=== PATIENT | male | born 1950 | race Caucasian/White ===

== ENCOUNTER 2017-01-31 06:47 | Inpatient (IN) | payer MEDICARE, MEDICAID ==
[~2017-01-31] VITALS: Ht 175.3 cm; Wt 73.9 kg
[2017-01-31] MEDS ORDERED: FAMOTIDINE 20 MG/2 ML IVP ONE (07:30)
[2017-01-31] MEDS ORDERED: ONDANSETRON 2MG/ML, 2ML IVPush ONE (07:30)
[2017-01-31] MEDS ORDERED: MORPHINE SULFATE 4 MG/ML, 1ML IVPush PRN (07:30)
[2017-01-31] MEDS ORDERED: SODIUM CHLORIDE 0.9% 1,000ML IVBOLUS ONE ×2 (07:30→08:00)
[2017-01-31] MEDS ORDERED: CEFTRIAXONE 1,000 MG in SODIUM CHLORIDE 0.9% 50 ML IVPB ONE (08:00)
[2017-01-31 08:04] LABS: BLOOD UREA NITROGEN 29 mg/dL (7-18)
[2017-01-31] MEDS ORDERED: FAMOTIDINE 20 MG/2 ML ONE (08:05)
[2017-01-31] MEDS ORDERED: ONDANSETRON 2MG/ML, 2ML ONE (08:05)
[2017-01-31 08:07] LABS: ASPARTATE AMINO TRANSFERASE 7 U/L (15-37)
[2017-01-31] MEDS ORDERED: MORPHINE SULFATE 4 MG/ML, 1ML ONE (08:11)
[2017-01-31] MEDS ORDERED: CEFTRIAXONE PMX 1GM/50ML 50 ML ONE (08:13)
[2017-01-31] MEDS ORDERED: CEFTRIAXONE PMX 1GM/50ML 50 ML IV SCH (08:14)
[2017-01-31 08:22] LABS: DIFF TOTAL CELLS COUNTED 100 CELL DIFF
[2017-01-31 08:23] LABS: VERIFY COUNTS? YES
[2017-01-31] MEDS ORDERED: NS + 40MEQ KCL 1,000 ML IV SCH (08:37)
[2017-01-31] MEDS ORDERED: OMNIPAQUE 350 MG/ML, 100ML BOTTLE ONE (08:41)
[2017-01-31] MEDS ORDERED: SODIUM CHLORIDE 0.9%, 500ML IVBOLUS ONE (09:30)
[2017-01-31] MEDS ORDERED: NS + 40MEQ KCL 1,000 ML IV ONE (09:56)
[2017-01-31] MEDS ORDERED: AZITHROMYCIN 500 MG in SODIUM CHLORIDE 0.9% 250 ML IV ONE (10:00)
[2017-01-31] MEDS: SODIUM CHLORIDE 0.9% 1,000 ML IV SCH ×3 (10:13→21:31)
[2017-01-31] MEDS ORDERED: ACETAMINOPHEN 325 MG TABLET PO PRN (10:30)
[2017-01-31] MEDS ORDERED: POLYETHYLENE GLYCOL 17 GM PACKET PO PRN (10:30)
[2017-01-31] MEDS ORDERED: DOCUSATE 100 MG CAPSULE PO PRN (10:30)
[2017-01-31] MEDS ORDERED: ONDANSETRON 2MG/ML, 2ML IVPush PRN (10:30)
[2017-01-31] MEDS ORDERED: BISACODYL 10 MG SUPP PR PRN (10:30)
[2017-01-31] MEDS ORDERED: THIAMINE 100MG TABLET ONE (11:08)
[2017-01-31] MEDS ORDERED: HEPARIN 5,000 UNITS/ML, 1ML ONE (11:08)
[2017-01-31] MEDS: THIAMINE 100MG TABLET PO SCH (11:09)
[2017-01-31] MEDS: HEPARIN 5,000 UNITS/ML, 1ML SQ SCH ×2 (11:10→18:11)
[2017-01-31] MEDS: FOLIC ACID 1 MG TABLET PO SCH (12:26)
[2017-01-31] MEDS ORDERED: NOREPINEPHRINE 4 MG in SODIUM CHLORIDE 0.9% 246 ML IV PRN (14:00)
[2017-01-31 14:40] VITALS: BP 85/56
[2017-01-31] MEDS ORDERED: INSULIN ASPART 100 UNITS/ML, PEN ONE (18:35)
[2017-01-31] MEDS: INSULIN ASPART 100 UNITS/ML, PEN SQ-INSULIN SCH (18:39)
[2017-01-31] MEDS ORDERED: FAMOTIDINE 20 MG/2 ML IVPush SCH (21:00)
[2017-02-01] MEDS: HEPARIN 5,000 UNITS/ML, 1ML SQ SCH ×3 (02:40→19:48)
[2017-02-01] MEDS: CEFTRIAXONE PMX 1GM/50ML 50 ML IV SCH (06:37)
[2017-02-01] MEDS: INSULIN ASPART 100 UNITS/ML, PEN SQ-INSULIN SCH ×4 (07:00→19:53)
[2017-02-01] MEDS ORDERED: CEFTRIAXONE 1,000 MG in SODIUM CHLORIDE 0.9% 50 ML IV SCH (07:00)
[2017-02-01 07:07] LABS: ASPARTATE AMINO TRANSFERASE 14 U/L (15-37); BLOOD UREA NITROGEN 20 mg/dL (7-18)
[2017-02-01] MEDS: AZITHROMYCIN 500 MG in SODIUM CHLORIDE 0.9% 250 ML IV SCH (07:22)
[2017-02-01] MEDS ORDERED: POTASSIUM CHLORIDE 20 MEQ TAB.ER.PRT PO ONE (07:30)
[2017-02-01] MEDS ORDERED: MAGNESIUM SULFATE PMX 2GM/50ML 50 ML IV ONE (07:30)
[2017-02-01 08:25] LABS: DIFF TOTAL CELLS COUNTED 100 CELL DIFF
[2017-02-01 08:28] LABS: VERIFY COUNTS? YES
[2017-02-01] MEDS: THIAMINE 100MG TABLET PO SCH (08:38)
[2017-02-01] MEDS: FOLIC ACID 1 MG TABLET PO SCH (08:39)
[2017-02-01] MEDS: INSULIN DETEMIR 100 UNITS/ML, PEN SQ-INSULIN SCH (12:26)
[2017-02-01 19:06] VITALS: BP 107/71
[2017-02-01] MEDS ORDERED: PNEUMOCOCCAL 23 VACCINE IM-VACC ONE (23:30)
[2017-02-02 03:43] VITALS: BP 117/79
[2017-02-02] MEDS: CEFTRIAXONE PMX 1GM/50ML 50 ML IV SCH (06:31)
[2017-02-02] MEDS: HEPARIN 5,000 UNITS/ML, 1ML SQ SCH ×3 (06:31→21:37)
[2017-02-02] MEDS: INSULIN ASPART 100 UNITS/ML, PEN SQ-INSULIN SCH ×4 (07:00→21:00)
[2017-02-02 07:26] VITALS: BP 125/78
[2017-02-02] MEDS: FOLIC ACID 1 MG TABLET PO SCH (08:21)
[2017-02-02] MEDS: THIAMINE 100MG TABLET PO SCH (08:21)
[2017-02-02] MEDS: AZITHROMYCIN 500 MG in SODIUM CHLORIDE 0.9% 250 ML IV SCH (08:21)
[2017-02-02] MEDS: INSULIN DETEMIR 100 UNITS/ML, PEN SQ-INSULIN SCH (08:23)
[2017-02-02 09:16] LABS: BLOOD UREA NITROGEN 15 mg/dL (7-18)
[2017-02-02 09:50] LABS: DIFF TOTAL CELLS COUNTED 100 CELL DIFF
[2017-02-02 09:52] LABS: VERIFY COUNTS? YES
[2017-02-02] MEDS ORDERED: OMEP-110 PO (11:26)
[2017-02-02] MEDS ORDERED: HYDR25TA6 PO (11:26)
[2017-02-02] MEDS ORDERED: POTA15TA9 PO (11:39)
[2017-02-02] MEDS ORDERED: ATOR80TA75 PO (11:39)
[2017-02-02] MEDS ORDERED: CARV12.52 PO (11:39)
[2017-02-02] MEDS ORDERED: ENAL20TA PO (11:39)
[2017-02-02] MEDS ORDERED: DOXA8TAB63 PO (11:39)
[2017-02-02] MEDS ORDERED: FERR325T20 PO (11:39)
[2017-02-02] MEDS ORDERED: GLIP10TA13 PO (11:39)
[2017-02-02] MEDS ORDERED: METF500T27 PO (11:39)
[2017-02-02 13:05] VITALS: BP 126/74
[2017-02-02 20:32] VITALS: BP 150/80
[2017-02-03 04:18] VITALS: BP 125/70
[2017-02-03] MEDS: CEFTRIAXONE PMX 1GM/50ML 50 ML IV SCH (06:20)
[2017-02-03] MEDS: HEPARIN 5,000 UNITS/ML, 1ML SQ SCH ×2 (06:20→15:33)
[2017-02-03] MEDS: INSULIN ASPART 100 UNITS/ML, PEN SQ-INSULIN SCH ×3 (07:00→16:00)
[2017-02-03 07:30] VITALS: BP 136/80
[2017-02-03] MEDS: THIAMINE 100MG TABLET PO SCH (08:46)
[2017-02-03] MEDS: AZITHROMYCIN 500 MG in SODIUM CHLORIDE 0.9% 250 ML IV SCH (08:46)
[2017-02-03] MEDS: FOLIC ACID 1 MG TABLET PO SCH (08:46)
[2017-02-03] MEDS: INSULIN DETEMIR 100 UNITS/ML, PEN SQ-INSULIN SCH (08:47)
[2017-02-03] MEDS ORDERED: LEVO750T26 PO (12:45)
[2017-02-03 14:54] VITALS: BP 137/84
[2017-02-03 18:06] VITALS: BP 117/82
== END 2017-02-03 19:30 | disposition home or self-care (01) | DRG 871 ==
LOC: ED 07:46 → EDIP 09:07 → CCU 13:00 → 4NOR 02-01 17:27
PROVIDERS: ADMIT Hospitalist; ATTEND Hospitalist
PROC: 02HV33Z Insertion of Infusion Device into Superior Vena Cava, Percutaneous Approach (ICD-10-PCS; principal; 2017-01-31)
PROC: B548ZZA Ultrasonography of Superior Vena Cava, Guidance (ICD-10-PCS; 2017-01-31)
DX: A41.9 Sepsis, unspecified organism (principal); J15.9 Unspecified bacterial pneumonia; R65.21 Severe sepsis with septic shock; N17.0 Acute kidney failure with tubular necrosis; E87.1 Hypo-osmolality and hyponatremia; J93.9 Pneumothorax, unspecified; E87.6 Hypokalemia; E86.0 Dehydration; I10 Essential (primary) hypertension; E78.00 Pure hypercholesterolemia, unspecified; E11.9 Type 2 diabetes mellitus without complications; K21.9 Gastro-esophageal reflux disease without esophagitis; E86.9 Volume depletion, unspecified
CPT/HCPCS: 36415; 36556; 71010; 74177; 80048; 80053; 81003; 82962; 83036; 83605; 83690; 83735; 84145; 85025; 86850; 86900; 87040; 87081; 90732; 93005; 96361; 96365; 96375; J0456; J0696; J1644; J1815; J2405; Q9967; J3475; J3480; J7030; J7040; J7050; S0028

== ENCOUNTER 2017-02-19 13:01 | Emergency (ER) | payer MEDICARE, MEDICAID ==
[~2017-02-19] VITALS: Ht 175.3 cm; Wt 67.8 kg
[~2017-02-19 13:01] MED LIST: ATOR80TA75 PO; CARV12.52 PO; DOXA8TAB63 PO; ENAL20TA PO; FERR325T20 PO; GLIP10TA13 PO; HYDR25TA6 PO; LEVO750T26 PO; METF500T27 PO; OMEP-110 PO; POTA15TA9 PO
[2017-02-19 13:20] VITALS: BP 117/70
[2017-02-19] MEDS ORDERED: LIDOCAINE 2% VISCOUS 15 ML UDC MM PRN (14:00)
== END 2017-02-19 16:05 | disposition home or self-care (01) ==
LOC: ED 15:35
DX: H60.501 Unspecified acute noninfective otitis externa, right ear (principal); H61.21 Impacted cerumen, right ear; E11.9 Type 2 diabetes mellitus without complications; I10 Essential (primary) hypertension; K21.9 Gastro-esophageal reflux disease without esophagitis; E78.00 Pure hypercholesterolemia, unspecified; E87.6 Hypokalemia
CPT/HCPCS: 99283

== ENCOUNTER 2017-06-27 08:30 | Emergency (ER) | payer MEDICARE, MEDICAID ==
[~2017-06-27] VITALS: Ht 175.3 cm; Wt 70.4 kg
[~2017-06-27 08:30] MED LIST changes: +ATOR-2 PO; -ATOR80TA75 PO; +FERR325T18 PO; -FERR325T20 PO
[2017-06-27 08:32] VITALS: BP 126/73
== END 2017-06-27 09:37 | disposition home or self-care (01) ==
LOC: ED 09:19
DX: B34.9 Viral infection, unspecified (principal); I88.9 Nonspecific lymphadenitis, unspecified; E78.00 Pure hypercholesterolemia, unspecified; I10 Essential (primary) hypertension; E11.9 Type 2 diabetes mellitus without complications; K21.9 Gastro-esophageal reflux disease without esophagitis
CPT/HCPCS: 99282

== ENCOUNTER 2018-06-05 14:11 | Emergency (ER) | payer MEDICAID, MEDICARE ==
[~2018-06-05] VITALS: Ht 175.3 cm; Wt 70.1 kg
[~2018-06-05 14:11] MED LIST changes: +INSU100I13 SC
[2018-06-05 14:58] LABS: ALANINE AMINOTRANSFERASE 24 U/L (12-78); ALBUMIN 3.6 g/dL (3.4-5.0); ANION GAP 10 mmol/L (5-15); CALCIUM 8.9 mg/dL (8.5-10.1); CHLORIDE 102 mmol/L (98-107)
[2018-06-05 15:02] LABS: ALKALINE PHOSPHATASE 62 U/L (45-117); BASOPHILS # (AUTO) 0.04 x10^3/uL (0-0.1); BASOPHILS % (AUTO) 1 % (0-1); BILIRUBIN,TOTAL 0.7 mg/dL (0.2-1.0); CREATININE 1.35 mg/dL (0.7-1.3); EOSINOPHILS # (AUTO) 0.23 x10^3/uL (0-0.4); EOSINOPHILS % (AUTO) 4 % (1-7); LYMPHOCYTES # (AUTO) 1.95 x10^3/uL (1-3.4); LYMPHOCYTES % (AUTO) 30 % (22-44); MD NO; MEAN CORPUSCULAR HEMOGLOBIN 29.5 pg (27.5-34.5); MEAN CORPUSCULAR VOLUME 89.4 fL (81-97); MEAN PLATELET VOLUME 8.8 fL (7.4-10.4); MONOCYTES % (AUTO) 6 % (2-9); NEUTROPHILS % (AUTO) 60 % (42-75); PLATELET COUNT 238 x10^3/uL (130-400); RED BLOOD COUNT 4.33 x10^6/uL (4.38-5.82); RED CELL DISTRIBUTION WIDTH 15.1 % (9.4-14.8); TOTAL PROTEIN 6.7 g/dL (6.4-8.2); TROPONIN I < 0.015 ng/mL (0.000-0.045)
[2018-06-05 15:37] VITALS: BP 118/62
== END 2018-06-05 16:24 | disposition home or self-care (01) ==
LOC: ED 16:14
DX: E10.65 Type 1 diabetes mellitus with hyperglycemia (principal); E78.00 Pure hypercholesterolemia, unspecified; I10 Essential (primary) hypertension; N28.9 Disorder of kidney and ureter, unspecified
CPT/HCPCS: 36415; 71045; 80053; 84484; 85025; 93005; 99285

== ENCOUNTER 2019-02-07 15:33 | Emergency (ER) | payer OTHER ==
[~2019-02-07] VITALS: Ht 175.3 cm; Wt 71.8 kg
[2019-02-07 15:34] VITALS: BP 135/88
== END 2019-02-07 16:22 | disposition home or self-care (01) ==
LOC: ED 16:00
DX: S39.012D Strain of muscle, fascia and tendon of lower back, subsequent encounter (principal); G89.21 Chronic pain due to trauma; Z76.0 Encounter for issue of repeat prescription; I10 Essential (primary) hypertension; E11.65 Type 2 diabetes mellitus with hyperglycemia; E78.00 Pure hypercholesterolemia, unspecified; N28.9 Disorder of kidney and ureter, unspecified; W19.XXXD Unspecified fall, subsequent encounter
CPT/HCPCS: 99283

== ENCOUNTER 2020-04-12 22:21 | Emergency (ER) | payer MEDICARE, MEDICAID ==
[~2020-04-12] VITALS: Ht 175.3 cm; Wt 75.0 kg
[~2020-04-12 22:21] MED LIST changes: -ENAL20TA PO; +ENAL20TA9 PO
[2020-04-12] MEDS ORDERED: SODIUM CHLORIDE 0.9% 1,000ML IVBOLUS ONE ×2 (22:30→23:30)
[2020-04-12] MEDS ORDERED: SODIUM CHLORIDE FLUSH 10ML SYR IVF ONE (22:30)
--- NOTE | 2020-04-12 22:40 | NUR ---
PT HERE FOR NEAR SYNCOPE AT HOME THIS EVENING. BP LOW AT HOME AND UPON ARRIVAL. PIV PLACED AND BLOOD DRAWN. FLUIDS RUNNING. PT HAS NO OTHER COMPLAINTS. WILL REASSESS BP AFTER FLUIDS. CALL LIGHT IN REACH
[2020-04-12 23:05] LABS: BASOPHILS # (AUTO) 0.05 x10^3/uL (0-0.1); BASOPHILS % (AUTO) 1 % (0-1); EOSINOPHILS # (AUTO) 0.21 x10^3/uL (0-0.4); EOSINOPHILS % (AUTO) 4 % (1-7); LYMPHOCYTES # (AUTO) 1.74 x10^3/uL (1-3.4); LYMPHOCYTES % (AUTO) 34 % (22-44); MD NO; MEAN CORPUSCULAR HEMOGLOBIN 28.2 pg (27.5-34.5); MEAN CORPUSCULAR HGB CONC 31.5 g/dL (33.2-36.2); MEAN CORPUSCULAR VOLUME 89.3 fL (81-97); MEAN PLATELET VOLUME 8.6 fL (7.4-10.4); MONOCYTES # (AUTO) 0.52 x10^3/uL (0.2-0.8); MONOCYTES % (AUTO) 10 % (2-9); NEUTROPHILS # (AUTO) 2.57 x10^3/uL (1.8-6.8); NEUTROPHILS % (AUTO) 50 % (42-75); PLATELET COUNT 229 x10^3/uL (130-400); RED BLOOD COUNT 4.05 x10^6/uL (4.38-5.82); RED CELL DISTRIBUTION WIDTH 14.2 % (9.4-14.8)
--- NOTE | 2020-04-12 23:41 | NUR ---
BP STILL LOW. MD AWARE. 2ND L OF FLUIDS RUNNING. PT RESTING WITH NO NEEDS AT THIS TIME. CALL LIGHT IN REACH
[2020-04-13 00:04] LABS: ALANINE AMINOTRANSFERASE 24 U/L (12-78); ALBUMIN 3.8 g/dL (3.4-5.0); ANION GAP 7 mmol/L (5-15); CALCIUM 8.6 mg/dL (8.5-10.1); CHLORIDE 100 mmol/L (98-107); CREATININE 1.52 mg/dL (0.7-1.3)
[2020-04-13 00:08] LABS: ALKALINE PHOSPHATASE 62 U/L (45-117); BILIRUBIN,TOTAL 0.7 mg/dL (0.2-1.0); T4 (THYROXINE) 7.1 mcg/dL (4.5-12.1); TOTAL PROTEIN 6.9 g/dL (6.4-8.2); TROPONIN I < 0.015 ng/mL (0.000-0.045)
[2020-04-13 00:43] VITALS: BP 104/53
--- NOTE | 2020-04-13 00:50 | NUR ---
PT AMBULATED WITH A STEADY GAIT TO BATHROOM. PT TO BE DC'D
--- NOTE | 2020-04-13 01:15 | NUR ---
Patient given discharge instructions and they have confirmed that they understand the instructions. Patient ambulatory with steady gait.
== END 2020-04-13 01:17 | disposition home or self-care (01) ==
LOC: ED 04-13 01:00
DX: R55 Syncope and collapse (principal); I95.0 Idiopathic hypotension; E86.0 Dehydration; I49.3 Ventricular premature depolarization; I10 Essential (primary) hypertension; E11.9 Type 2 diabetes mellitus without complications; E78.00 Pure hypercholesterolemia, unspecified
CPT/HCPCS: 36415; 80053; 80307; 83880; 84436; 84443; 84484; 85025; 93005; 96360; 99284; J7030

== ENCOUNTER 2020-04-29 15:52 | Emergency (ER) | payer MEDICARE, MEDICAID ==
[~2020-04-29] VITALS: Ht 172.7 cm; Wt 70.5 kg
--- NOTE | 2020-04-29 16:05 | NUR ---
pt BIB EMS following fall while getting out of car. pt states that he trip on a rock while getting out of the car. Denies hitting head or LOC. 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
[2020-04-29] MEDS ORDERED: HYDROcodone/APAP 5/325 TABLET ONE (16:47)
--- NOTE | 2020-04-29 16:53 | NUR ---
pt ambulated to the bathroom with a steady gait.
[2020-04-29] MEDS ORDERED: HYDROcodone/APAP 5/325 TABLET PO ONE (17:00)
--- NOTE | 2020-04-29 18:02 | NUR ---
pt continues to state he is having 5-6/10 right shoulder pain. Communicated information to provider. MD to place additional order and speak to radiology regarding XR
[2020-04-29 18:37] VITALS: BP 98/58
--- NOTE | 2020-04-29 18:55 | NUR ---
Report given to Karen, care of patient transfered.
== END 2020-04-29 20:27 ==
LOC: ED 16:37
DX: S42.031A Displaced fracture of lateral end of right clavicle, initial encounter for closed fracture (principal); E11.9 Type 2 diabetes mellitus without complications; W01.0XXA Fall on same level from slipping, tripping and stumbling without subsequent striking against object, initial encounter; Y93.89 Activity, other specified; Y92.009 Unspecified place in unspecified non-institutional (private) residence as the place of occurrence of the external cause; Y99.8 Other external cause status
CPT/HCPCS: 99283